=== PATIENT | male | born 1940 | race Caucasian/White ===

== ENCOUNTER 2021-09-22 07:29 | Outpatient (CLI) | payer MEDICARE, BC, SELFPAY ==
--- NOTE | 2021-09-22 07:53 | CT_ITS ---
WS: [id number] CT ABDOMEN AND PELVIS WITH CONTRAST HISTORY: LLQ ABDOMINAL PAIN TECHNIQUE: Imaging performed of the abdomen and pelvis with IV contrast. Single phase imaging of the abdomen. Coronal and sagittal reformats are submitted. All CT scans at [facility] use at [address] one of these dose optimization techniques: automated exposure control; mA and/or kV adjustment per patient size (includes targeted exams where dose is matched to clinical indication); or iterative re construction. IV CONTRAST: Omnipaque 350; 95 mL IV. Oral contrast: Yes. DLP: 1130.03 mGy.cm COMPARISON: 07/11/2017 Lower thorax: Lung bases are clear. Heart is normal size. Small hiatal hernia. Liver/biliary system: Normal size with no intrahepatic dilatation. Normal enhancement of the portal v ein. Gallbladder: Normal. No gallstones or wall thickening. No pericholecystic fluid. Pancreas: Normal size pancreas and pancreatic duct. No adjacent inflammation. Spleen: Normal size spleen. No mass or infarct. Adrenal glands: Adrenal glands are thickened bilaterally. 11 mm low-attenuation nodule in the LEFT ad renal gland is similar to prior studies. Right kidney: Numerous cystic masses within the kidney. No solid mass identified. The largest cyst fr om the upper pole measures 5.6 x 4.8 cm. No solid mass or obstruction. Left kidney: Normal size kidney. Large cyst from the upper pole measures 8.3 x 7.2 cm. There are kiara tional scattered low-attenuation nodules within the cortex. Nonobstructing calcification lower pole. No hydronephrosis. Aorta: Mild atherosclerosis with no aneurysm. Small amount of nonobstructed plaque at the origin of t he celiac axis. Greater plaque burden at the origin of the SMA. There is atherosclerotic change in th e proximal SMA. Lymphadenopathy: None. Free fluid: None. GI tract: Normally distended stomach. No small bowel obstruction. The appendix is normal. No adjacent inflammation around the appendix. Diffuse mild constipation. Scattered diverticula in the colon. No acute diverticulitis. There is mild soft tissue asymmetry at the rectum. This may be due to redundant folds a rectal neoplasm is not excluded on this appearance. Abdominal wall: Unremarkable abdominal wall. No hernia. Pelvis: Diffuse mildly thickened urinary bladder. No focal thickening or enhancement. Prostate gland is heterogeneous with calcification encroaching into the bladder. Bones: L4 anterolisthesis by 5 mm. S-shaped curvature lower thoracic and the lumbar spine. 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 RIGHT hip joint space narrowing with subchondral cystic c hanges on both sides of the joint. Multilevel areas of central and foraminal stenosis throughout the lumbar spine. CT/CT abdomen pelvis w con* [id number] IMPRESSION: 1. No acute abdominal or pelvic abnormalities are identified. 2. Moderate atherosclerotic disease within the aorta and proximal SMA. Patient at risk for developing ischemic disease. 3. Asymmetry of soft tissue at the rectum. May be due to redundant soft tissue but early neoplasm not excluded at the rectum. 4. Prostate gland hypertrophy and mild trabecular thickening within the urinar y bladder. 5. Constipation. 6. Numerous bilateral renal cysts.
[2021-09-22 10:02] LABS: Blood Urea Nitrogen 24 mg/dL (8-23)
[2021-09-22] MEDS: iohexol 350 mg/mL 100 mL Btl IV (10:07)
== END 2021-09-22 07:30 | disposition home or self-care (01) ==
LOC: RAD 07:32
PROVIDERS: Radiology Neuroradiology; Visit Provider Internal Medicine
DX: Q61.02 Congenital multiple renal cysts (principal); K59.00 Constipation, unspecified; N40.0 Benign prostatic hyperplasia without lower urinary tract symptoms; I70.0 Atherosclerosis of aorta
CPT/HCPCS: 74177; 82565; 84520

== ENCOUNTER 2021-11-29 10:52 | Emergency (ER) | payer MEDICARE, BC, SELFPAY ==
[2021-11-29 11:58] VITALS: BP 174/80; PULSE 81; RESP 15; TEMP 36.4; O2SAT 100; BMI 25.2
--- NOTE | 2021-11-29 12:39 | CT_ITS ---
WS: [id number] CT ABDOMEN AND PELVIS NONCONTRAST HISTORY: LEFT flank pain with nausea. TECHNIQUE: Imaging performed through the abdomen and pelvis. Coronal and sagittal reformats are submi tted. All CT scans at [facility] use at least one of these dose optimization techniques: auto mated exposure control; mA and/or kV adjustment per patient size (includes targeted exams where dose is matched to clinical indication); or iterative reconstruction. DLP: 1462.36 mGy.cm COMPARISON: 09/22/2021 Lower thorax: Lung bases are clear. Small hiatal hernia. Liver: Normal size liver. No mass or bile duct dilatation. Gallbladder: Normal gallbladder. Pancreas: Normal size and attenuation. Normal pancreatic duct. No pancreatitis or mass. Spleen: Normal. Adrenal glands: Mild bilateral adrenal hyperplasia. Right kidney: Mild perinephric stranding. Again noted are several cysts with the largest from the nip ple measuring 3.6 x 5.1 cm. No obstruction or ureteral calcification. Left kidney: Perinephric stranding with a large cyst upper pole measuring 8.2 x 7.8 cm. Additional sm aller cysts are scattered throughout the kidney. Nonobstructing calcifications. No ureteral obstructi on or calcification. Aorta: Moderate atherosclerotic plaque within the aorta. No free fluid, intraperitoneal air or significant lymphadenopathy. GI tract: Normally distended stomach. No small bowel obstruction. Moderate diffuse colonic constipati on. Normal appendix. Numerous diverticula in the distal colon without acute diverticulitis. Abdominal wall: Small umbilical hernia contains fat only. Pelvis: Enlarged prostate gland with calcifications. No free fluid or adenopathy. Osseous structures: Degenerative scoliosis in the lumbar spine. Moderate narrowing of the hip joints. CT/CT abdomen pelvis wo con [id number] IMPRESSION: 1. No renal or ureteral obstruction. 2. Bilateral renal cysts, previously described on the enhanced study from 09/22. 3. Bilateral perinephric stranding, LEFT greater than RIGHT. 4. Normal appendix. 5. Distal colonic diverticulosis without acute diverticulitis. 6. Prostate gland enlargement.
--- NOTE | 2021-11-29 12:40 | ECG_ITS ---
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 Measurements Intervals [place] Rate: 60 P: 64 OH: 152 QRS: 23 QRSD: 92 T: 54 QT: 397 QTc: 399 Interpretive Statements SINUS RHYTHM No previous ECG available for comparison Electronically Signed On 11-29-2021 20:06:39 CDT by Raul Putnam M.D. [id number]
--- NOTE | 2021-11-29 12:41 | W.ED.BACK ---
HPI - Back Pain/Injury General: Chief Complaint: Back Pain/Injury Stated Complaint: low back pain Time Seen by Provider: 11/29/21 12:29 History of Present Illness: 81-year-old presents for left flank pain. States this been ongoing since March. States that over the last 3 weeks it is gotten worse. Denies any dysuria or urethral discharge. Denies any chest pain shortness of breath range or abdominal pain. Denies any focal weakness numbness or tingling. States he has been treated by his primary care doctor with meloxicam but is no longer working. Denies any nausea vomiting diarrhea constipation. Review of Systems Narrative: - CONSTITUTIONAL: Denies weight loss, fever and chills. - HEENT: Denies changes in vision and hearing. - RESPIRATORY: Denies SOB and cough. - CV: Denies palpitations and CP. - GI: Denies abdominal pain, nausea, vomiting and diarrhea. - : Denies dysuria and urinary frequency. - MSK: Denies myalgia and joint pain. - SKIN: Denies rash and pruritus. - NEUROLOGICAL: Denies headache, weakness, numbness and syncope. - PSYCHIATRIC: Denies suicidal ideation Physical Exam Narrative: EXAM NARRATIVE: - GENERAL: Alert and oriented x 3. No acute distress. Well-nourished. - EYES: EOMI. Anicteric. - HENT: Atraumatic, no C-spine tenderness. Moist mucous membranes. No scleral icterus. No cervical lymphadenopathy. - LUNGS: Clear to auscultation bilaterally. No accessory muscle use. Equal lung sounds bilaterally. No respiratory distress. - CARDIOVASCULAR: Regular rate and rhythm. No murmur. No JVD. - ABDOMEN: Soft, non-tender and non-distended. Positive CVA tenderness on the left, no CVA tenderness on right no rebound or guarding, negative Arrington sign. No palpable masses. - EXTREMITIES: No edema. Non-tender. No spinal tenderness to palpation. No saddle anesthesia, lower extremity strength sensation reflexes intact. - SKIN: No rashes or lesions. Warm. - NEUROLOGIC: No meningismus or focal neurological deficits. CN II-XII grossly intact. - PSYCHIATRIC: Cooperative. Appropriate mood and affect. Course Vital Signs: Vital signs: Vital Signs Temperature 97.5 F L 11/29/21 11:58 Pulse Rate 76 11/29/21 13:07 Respiratory Rate 15 11/29/21 11:58 Blood Pressure 127/81 11/29/21 13:07 Pulse Oximetry 100 11/29/21 11:58 MDM - Back Pain/Injury Medical Decision Making 81-year-old presents with left flank pain. Denies any midline back pain. There is no focal neurologic abnormality to suggest need for MRI at this time. CT scan does not reveal any sign of active kidney stone diverticulitis or other acute abnormality. Lab work unremarkable. Prescription for Flexeril Lidoderm patches provided. At this time I believe patient would be safe for discharge and outpatient follow-up. Return precautions provided. Plan was reviewed with the patient who expressed understanding. Questions answered. Patient will follow up with PCP. Patient discharged in stable condition. Labs : 11/29/21 12:50 11/29/21 12:50 Radiology Impressions Abdomen/Pelvis CT 11/29/21 12:39 IMPRESSION: 1. No renal or ureteral obstruction. 2. Bilateral renal cysts, previously described on the enhanced study from 09/22/2021. 3. Bilateral perinephric stranding, LEFT greater than RIGHT. 4. Normal appendix. 5. Distal colonic diverticulosis without acute diverticulitis. 6. Prostate gland enlargement. Laboratory Results WBC 8.2 10^3/uL (4.0-10.0) 11/29/21 12:50 RBC 4.03 10^6/uL (4.1-5.3) L 11/29/21 12:50 Hgb 13.7 g/dL (11.7-16.6) 11/29/21 12:50 Hct 37.7 % (42.0-52.0) L 11/29/21 12:50 MCV 93.5 fl (80-94) 11/29/21 12:50 MCH 34.0 pg (28.0-34.0) 11/29/21 12:50 MCHC 36.3 g/dL (30.0-36.0) H 11/29/21 12:50 RDW 12.5 % (12.1-15.1) 11/29/21 12:50 Plt Count 212 10^3/cmm (130-400) 11/29/21 12:50 MPV 9.4 fL (7.4-10.4) 11/29/21 12:50 Neut % (Auto) 77.5 % 11/29/21 12:50 Lymph % (Auto) 15.1 % 11/29/21 12:50 [place] % (Auto) 6.1 % 11/29/21 12:50 Eos % (Auto) 0.4 % 11/29/21 12:50 Baso % (Auto) 0.7 % 11/29/21 12:50 Neut # (Auto) 6.37 10^3/uL (1.8-7.7) 11/29/21 12:50 Lymph # (Auto) 1.2 10^3/uL (0.8-4.8) 11/29/21 12:50 [place] # (Auto) 0.5 10^3/uL (0.2-0.9) 11/29/21 12:50 Eos # (Auto) 0.0 10^3/uL (0.0-0.8) 11/29/21 12:50 Baso # (Auto) 0.1 10^3/uL (0.0-0.1) 11/29/21 12:50 Nucleated RBC % (auto) 0 % 11/29/21 12:50 Nucleated RBCs # 0.0 /100WBC 11/29/21 12:50 Sodium 136 mmol/L (136-145) 11/29/21 12:50 Potassium 4.3 mmol/L (3.5-5.1) 11/29/21 12:50 Chloride 99 mmol/L (98-107) 11/29/21 12:50 Carbon Dioxide 27 mmol/L (22-29) 11/29/21 12:50 Anion Gap 14.3 (5-19) 11/29/21 12:50 BUN 23 mg/dL (8-23) 11/29/21 12:50 Creatinine 0.9 mg/dL (0.7-1.2) 11/29/21 12:50 GFR Calculation Not Reportable 11/29/21 12:50 Glucose 114 mg/dL (65-115) 11/29/21 12:50 Calculated Osmolality 287 mOsm/kg (285-295) 11/29/21 12:50 Lactate 1.1 mmol/L (0.5-2.2) 11/29/21 12:50 Calcium 9.2 mg/dL (8.5-10.5) 11/29/21 12:50 Total Bilirubin 1.0 mg/dL (0.15-1.2) 11/29/21 12:50 AST 17 U/L (0-40) 11/29/21 12:50 ALT 14 U/L (0-41) 11/29/21 12:50 Alkaline Phosphatase 63 IU/L (40-130) 11/29/21 12:50 Troponin T Baseline 9 ng/L (0-15) 11/29/21 12:50 Total Protein 7.6 g/dL (6.6-8.7) 11/29/21 12:50 Albumin 4.5 g/dL (3.5-5.2) 11/29/21 12:50 Globulin 3.1 g/dL (1.3-4.6) 11/29/21 12:50 Lipase 28 U/L (13-60) 11/29/21 12:50 Urine Color Yellow (Yellow) 11/29/21 13:04 Urine Appearance Clear (CLEAR) 11/29/21 13:04 Urine pH 5 (5-7) 11/29/21 13:04 Ur Specific [place] 1.015 (1.005-1.030) 11/29/21 13:04 Urine Protein Neg (Negative) 11/29/21 13:04 Urine Glucose (UA) Norm (Normal) 11/29/21 13:04 Urine Ketones Negative (Negative) 11/29/21 13:04 Urine Blood Neg (Negative) 11/29/21 13:04 Urine Nitrate Negative (Negative) 11/29/21 13:04 Urine Bilirubin Neg (Negative) 11/29/21 13:04 Urine Urobilinogen Norm mg/dL (Negative) 11/29/21 13:04 Ur Leukocyte Esterase Negative (Negative) 11/29/21 13:04 Urine RBC None /hpf (0-2) 11/29/21 13:04 Urine WBC 0-4 /hpf (0-5) H 11/29/21 13:04 Ur Squamous Epith Cells 0-4 /hpf (0-5) H 11/29/21 13:04 Amorphous Sediment Not Reportable 11/29/21 13:04 Urine Bacteria None /hpf (NONE) 11/29/21 13:04 EKG Data EKG 1: Other EKG comments: Normal sinus rhythm, rate of 60, no sign of acute ischemia or other acute abnormality. Discharge Plan Discharge Condition: Stable Prescriptions: No Action losartan 50 mg tablet 50 mg PO DAILY 0RF meloxicam 15 mg tablet 15 mg PO DAILY 0RF lactulose 20 gram/30 mL solution 20 g PO BID 0RF polyethylene glycol 3350 [Miralax] 17 gram/dose powder 4 g PO DAILY 0RF Referrals: Demetrio Dawson DO [Primary Care Provider] - Coding Level of Care Code ED Tie Tape Machine Operator for Brian Collado
[2021-11-29 12:58] LABS: Basophils # 0.1 10^3/uL (0.0-0.1); Basophils % 0.7 %; Eosinophils % 0.4 %; Hematocrit 37.7 % (42.0-52.0); Hemoglobin 13.7 g/dL (11.7-16.6); Lymphocytes # 1.2 10^3/uL (0.8-4.8); Lymphocytes % 15.1 %; Mean Corpuscular HGB Conc 36.3 g/dL (30.0-36.0); Mean Corpuscular Volume 93.5 fl (80-94); Mean Platelet Volume 9.4 fL (7.4-10.4); Monocytes # 0.5 10^3/uL (0.2-0.9); Monocytes % 6.1 %; Neutrophils # 6.37 10^3/uL (1.8-7.7); Neutrophils % 77.5 %; Nucleated Red Blood Cells % 0 %; Platelet Count 212 10^3/cmm (130-400); Red Blood Count 4.03 10^6/uL (4.1-5.3); Red Cell Distribution Width 12.5 % (12.1-15.1); White Blood Count 8.2 10^3/uL (4.0-10.0)
[2021-11-29] MEDS: HYDROcodone-acetaminophen 5-325 mg Tablet 1 TAB PO (13:00)
[2021-11-29 13:07] VITALS: BP 127/81; PULSE 76
[2021-11-29 13:16] LABS: Troponin(5th) Baseline 9 ng/L (0-15)
[2021-11-29 13:17] LABS: Lactate (Lactic Acid level) 1.1 mmol/L (0.5-2.2)
[2021-11-29 13:18] LABS: Alanine Aminotransferase 14 U/L (0-41); Albumin Level 4.5 g/dL (3.5-5.2); Alkaline Phosphatase 63 IU/L (40-130); Anion Gap 14.3 (5-19); Aspartate Amino Transferase 17 U/L (0-40); Blood Urea Nitrogen 23 mg/dL (8-23); Calcium 9.2 mg/dL (8.5-10.5); Carbon Dioxide 27 mmol/L (22-29); Chloride 99 mmol/L (98-107); Globulin 3.1 g/dL (1.3-4.6); Glucose 114 mg/dL (65-115); Lipase 28 U/L (13-60); Osmolality Calculated 287 mOsm/kg (285-295); Potassium 4.3 mmol/L (3.5-5.1); Sodium 136 mmol/L (136-145); Total Protein 7.6 g/dL (6.6-8.7)
[2021-11-29 13:26] LABS: Add Urine Culture? No; Bilirubin Urine Neg (Negative); Blood Urine Neg (Negative); Glucose Urine UA Norm (Normal); Ketones Urine Negative (Negative); Leukocyte Esterase Urine Negative (Negative); Nitrate Urine Negative (Negative); Protein Urine Neg (Negative); Specific Gravity, Urine 1.015 (1.005-1.030); Squamous Epithelial Cell Urine 0-4 /hpf (0-5); Urine Appearance Clear (CLEAR); Urine Color Yellow (Yellow); Urobilinogen Urine Norm (Negative); WBC Urine 0-4 /hpf (0-5); pH Urine 5 (5-7)
[2021-11-29 14:00] VITALS: BP 121/89; PULSE 72; RESP 16; TEMP 36.7; O2SAT 98
== END 2021-11-29 14:00 | disposition home or self-care (01) ==
PROVIDERS: Emergency Provider Emergency Medicine; PCP Internal Medicine
DX: M54.50 Low back pain, unspecified (principal)
CPT/HCPCS: 74176; 80053; 81001; 83605; 83690; 84484; 85025; 93005; 99284

== ENCOUNTER → 2022-01-18 07:55 | Outpatient (BNVA) | payer MEDICARE, BC, SELFPAY | PROVIDERS: PCP Internal Medicine; Visit Provider Nurse Practitioner Family | DX: N40.1 Benign prostatic hyperplasia with lower urinary tract symptoms (principal); R10.32 Left lower quadrant pain | CPT/HCPCS: 51741; 51798; 81003; 99203 ==

== ENCOUNTER → 2022-03-30 14:00 | Outpatient (BNVA) | payer MEDICARE, BC, SELFPAY | PROVIDERS: PCP Internal Medicine; Visit Provider Urology | DX: N40.1 Benign prostatic hyperplasia with lower urinary tract symptoms (principal); R10.32 Left lower quadrant pain; N52.9 Male erectile dysfunction, unspecified | CPT/HCPCS: 51798; 81003; 99213 ==